=== PATIENT | female | born 2005 | race Two or more races ===

== ENCOUNTER 2024-06-06 08:26 | Inpatient (IN) | payer BC, OTHER ==
[~2024-06-06] VITALS: Ht 152.4 cm; Wt 44.9 kg
[2024-06-06] MEDS: SODIUM CHLORIDE 0.9% 1,000 ML IV ONE ×2 (09:37→10:24)
[2024-06-06] MEDS: LORazepam 2MG/ML-1ML VIAL IV ONE ×2 (09:40→13:09)
[2024-06-06 09:44] VITALS: PULSE 99; RESP 16; O2SAT 99
[2024-06-06 10:35] LABS: Basophils # (auto) 0 10 ^3/uL (0-0.2); Basophils % (auto) 0.4 % (0.0-2.0); Eosinophils # (auto) 0 10 ^3/uL (0-0.8); Eosinophils % (auto) 0.3 % (0.0-7.0); Hematocrit 39.9 % (36.0-46.0); Hemoglobin 13.3 g/dL (12.2-16.2); Lymphocytes # (auto) 1.1 10 ^3/uL (0.4-5.4); Lymphocytes % (auto) 10.6 % (10.0-50.0); Mean Corpuscular Hemoglobin 30.6 pg (28.0-32.0); Mean Corpuscular Hgb Conc. 33.3 g/dL (32.0-36.0); Monocytes # (auto) 0.5 10 ^3/uL (0-1.3); Monocytes % (auto) 5.2 % (0.0-12.0); Neutrophils # (auto) 8.4 10 ^3/uL (1.6-8.6); Neutrophils % (auto) 83.5 % (37.0-80.0); Nucleated Red Blood Cells % 0.1 %; Red Blood Cells 4.34 10^6/uL (4.0-5.20); Red Cell Distribution Width 12.9 % (11.8-14.3)
[2024-06-06 10:46] LABS: Anion Gap 8 (5-15); Carbon Dioxide 22 mmol/L (20-30); Chloride 111 mmol/L (98-107); Potassium 3.7 mmol/L (3.5-5.1); Sodium 141 mmol/L (136-145)
[2024-06-06 10:47] LABS: Calcium 10.6 mg/dL (8.7-10.4)
[2024-06-06 10:51] LABS: Glucose 87 mg/dL (74-106)
[2024-06-06 10:52] LABS: BUN/Creatinine Ratio 9.3 (10.0-20.0); Blood Urea Nitrogen 11 mg/dL (9-23)
[2024-06-06 11:06] LABS: Urine Bacteria FEW /hpf (None Seen); Urine Blood Negative /uL (Negative); Urine Clarity Turbid (Clear); Urine Color Yellow (Yellow); Urine Mucus FEW (None Seen); Urine Protein, UAD TRACE (Negative); Urine Specific Gravity 1.024 (1.001-1.035); Urine Urobilinogen Normal (Negative); Urine WBC 3 /hpf (0 - 5)
[2024-06-06 11:08] LABS: Amphetamine Screen, Urine Neg (NEGATIVE); Barbiturate Scree,Urine Neg (NEGATIVE); Benzodiazephine Screen, Urine Neg (NEGATIVE); Cannabinoid Screen, Urine Pos (NEGATIVE); Cocaine Screen, Urine Neg (NEGATIVE); Opiate Scree,Urine Neg (NEGATIVE); Phencyclidine Screen, Urine Neg (NEGATIVE)
[2024-06-06] MEDS: diphenhdrAMINE HCL 50 MG/1 ML VL IV ONE (13:09)
[2024-06-06] MEDS ORDERED: MORPHINE SULFATE INJ 2 MG/ml SYRG IV PRN (13:15)
[2024-06-06] MEDS ORDERED: ONDANSETRON HCL 4 MG/2 ML VIAL IV PRN (13:15)
[2024-06-06] MEDS ORDERED: DOCUSATE SOD 100 MG CAP PO PRN (13:15)
[2024-06-06] MEDS: SODIUM CHLORIDE 0.9% 1,000 ML IV SCH (13:25)
[2024-06-06] MEDS ORDERED: ALBUTEROL SULF 2.5 MG/0.5ML(0.5%) NEB SOLN NEB PRN (13:30)
[2024-06-06] MEDS ORDERED: IPRATROPIUM BROM 0.5 MG/2.5ML INH SOL NEB PRN (13:30)
[2024-06-06] MEDS: AZITHROMYCIN 250 MG TAB PO ONE (13:36)
[2024-06-06] MEDS: IPRATROPIUM BROM 0.5 MG/2.5ML INH SOL NEB ONE (13:47)
[2024-06-06] MEDS: ALBUTEROL SULF 2.5 MG/0.5ML(0.5%) NEB SOLN NEB ONE (13:47)
[2024-06-06] MEDS: predniSONE 20 MG TAB PO SCH (14:05)
[2024-06-06] MEDS ORDERED: NITROGLYCERIN 0.4 MG SL TAB SL PRN (14:30)
[2024-06-06 14:35] VITALS: BP 113/65; PULSE 100; RESP 16; TEMP 98.9; O2SAT 99
[2024-06-06 16:00] VITALS: BP 109/71; PULSE 91; RESP 16; TEMP 98; O2SAT 100
[2024-06-07] MEDS ORDERED: AZITHROMYCIN 250 MG TAB PO SCH (10:00)
== END 2024-06-06 17:00 | disposition left against medical advice (07) | DRG 641 ==
LOC: ER 08:29 → OVERFLOW 14:31
PROVIDERS: ADMIT Nurse Practitioner Family; ATTEND Nurse Practitioner Family
DX: E86.0 Dehydration (principal); N17.9 Acute kidney failure, unspecified; F41.1 Generalized anxiety disorder; R00.0 Tachycardia, unspecified; F12.10 Cannabis abuse, uncomplicated
CPT/HCPCS: 36415; 71045; 80048; 80307; 81001; 85025; 94640; G0378

== ENCOUNTER 2024-12-01 13:41 | Emergency (ER) | payer BC ==
[~2024-12-01] VITALS: Ht 152.4 cm; Wt 47.7 kg
[2024-12-01 13:57] VITALS: BP 110/80; PULSE 80; RESP 17; O2SAT 99
[2024-12-01] MEDS ORDERED: ONDANSETRON ODT 4 MG TAB PO ONE (14:00)
[2024-12-01] MEDS ORDERED: LOPE2CAP16 PO (14:06)
[2024-12-01] MEDS ORDERED: ZOFR4T PO (14:06)
--- NOTE | 2024-12-01 14:06 | ED.PDOC ---
GI ASSESSMENT HPI Comments nausea, vomiting, diarrhea Comments pt and her family has been having nausea, vomiting, diarrhea since morning. no pain. LMP 11/14/24. pt also smokes marijuana Time Seen by MD: 13:52 Reviewed Notes: Nurses Notes, Medications, Allergies Allergies: Coded Allergies: NO KNOWN ALLERGIES (Unverified , 06/06/24) Home Meds Active Scripts Loperamide Hcl (Imodium) 2 Mg Cp, 2 MG PO BID PRN for 2 Days, #4 CAP Prov:BEL CHRISTIANSON MD 12/01/24 Ondansetron Odt 4MG Tab (ZOFRAN PO) 4 Mg Tb, 4 MG PO Q4HP PRN for 3 Days, #15 TAB ODT TAB-DISSOLVE IN MOUTH, THEN SWALLOW Prov:BEL CHRISTIANSON MD 12/01/24 Information Source: Patient Mode of Arrival: Ambulatory Timing: Hours, Days Duration: Intermittent Quality: None Vomitus: Food Particles Stool: Loose Severity: Mild Recent Hx of: Contact Exposure Pain Location: None Modifying Factors: Nothing Associated sign and symptoms: Nausea, Vomiting, Diarrhea Past Medical History PAST MEDICAL HISTORY: Anxiety Surgical History: Denies all surgeries TECHNICAL CONSULTANT History: No Pertinent TECHNICAL CONSULTANT History Family History Family History: Reviewed,noncontributory to illness Social History Smoker: Non-Smoker Alcohol: Denies ETOH Use Drugs: Marijuana Lives In: Home Constitutional: denies: chills, diaphoresis, fatigue, fever, malaise, sweats, weakness, others EENTM: denies: blurred vision, double vision, ear bleeding, ear discharge, ear drainage, ear pain, ear ringing, eye pain, eye redness, hearing loss, mouth pain, mouth swelling, nasal discharge, nose bleeding, nose congestion, nose pain, photophobia, tearing, throat pain, throat swelling, voice changes, others Respiratory: denies: cough, hemoptysis, orthopnea, SOB at rest, shortness of breath, SOB with excertion, stridor, wheezing, others Cardiovascular: denies: chest pain, dizzy spells, diaphoresis, Dyspnea on exertion, edema, irregular heart beat, left arm pain, lightheadedness, palpitations, PND, syncope, others Gastrointestinal: denies: abdomen distended, abdominal pain, blood streaked bowels, constipated, diarrhea, dysphagia, difficulty swallowing, hematemesis, melena, nausea, poor appetite, poor fluid intake, rectal bleeding, rectal pain, vomiting, others Genitourinary: denies: abnormal vagina bleeding, burning, dyspareunia, dysuria, flank pain, frequency, hematuria, incontinence, pain, , vagina discharge, urgency, others Neurological: denies: dizziness, fainting, headache, left sided numbness, left sided weakness, numbness, paresthesia, pre-existing deficit, right sided numbness, right sided weakness, seizure, speech problems, tingling, tremors, weakness, others Musculoskeletal: denies: back pain, gout, joint pain, joint swelling, muscle pain, muscle stiffness, neck pain, others Integumetry: denies: bruises, change in color, change in hair/nails, dryness, laceration, lesions, lumps, rash, wounds, others Allergic/Immunocompromised: denies: Difficulty Healing, Frequent Infections, Hives, Itching, others Hematologic/Lymphatic: denies: anemia, blood clots, easy bleeding, easy bruising, swollen glands, others Endocrine: denies: excessive hunger, excessive sweating, excessive thirst, excessive urination, flushing, intolerance to cold, intolerance to heat, unexplained weight gain, unexplained weight loss, others Psychiatric: denies: anxiety, bipolar disorder, depression, hopeless, panic disorder, schizophrenia, sleepless, suicidal, others All Other Systems: Reviewed and Negative Physical Exam General Appearance: No Apparent Distress, Normal HEENT: Normal ENT Inspection, Pharynx Normal, TMs Normal Neck: Full Range of Motion, Non-Tender, Normal, Normal Inspection Respiratory: Chest Non-Tender, Lungs Clear, No Accessory Muscle Use, No Respiratory Distress, Normal Breath Sounds Cardiovascular: No Edema, No JVD, No Murmur, No Gallop, Normal Peripheral Pulses, Regular Rate/Rhythm Breast Exam: Deferred Gastrointestinal: No Organomegaly, Non Tender, No Pulsatile Mass, Normal Bowel Sounds, Soft Genitalia: Deferred Pelvic: Deferred Rectal: Deferred Extremities: No calf tenderness, Normal capillary refill, Normal inspection, Normal range of motion, Non-tender, No pedal edema Musculoskeletal : Apperance: Normal Neurologic: Alert, scaffold builder II-XII nml as Tested, No Motor Deficits, Normal Affect, Normal Mood, No Sensory Deficits Cerebellar Function: Normal Reflexes: Normal Skin: Dry, Normal Color, Warm Lymphatic: No Adenopathy Was a procedure done? Was a procedure done?: No GI differential Dx Differential Diagnosis: Appendicitis, Complete , Incomplete , Inevitable , Missed , Threatened , Abruptio placentae, Bowel Obstruction, Dysmenorrhea, Ectopic , Gastritis/PUD, Gastroenteritis, Hernia, Hepatitis, Ovarian cyst/torsion, Pancreatitis, Dehydration, Diabetes/ DKA, Electrolyte Imbalance, Food Poisoning, , Bacterial, Parasitic, Viral, Hypovolemia X-Ray, Labs, Meds, VS Vital Signs Date Time Temp Pulse Resp B/P (MAP) Pulse Ox O2 Delivery O2 Flow Rate FiO2 12/01/24 13:57 98.2 80 17 110/80 (90) 99 Time of 1ST Reevaluation: 13:58 Reevaluation 1ST: Unchanged Patient Education/Counseling: Diagnosis, Treatment, Prognosis, Need For Follow Up Family Education/Counseling: No Family Present Additional Information this is a well appearing female, well hydrated, has no abdominal pain,, is not . her family has the same symptoms. although she does uses marijuana, this is likely a viral cause, especially with the family all having the same symptoms at the same time. i will start her on zofran and imodium. pt was called back to be reassessed. however, she is angry because she does not want to return to [facility] and has not given us urine for test Departure 1 Departure Time of Disposition: 15:32 Impression: Primary Impression: Nausea & vomiting Qualified Codes: R11.2 - Nausea with vomiting, unspecified Additional Impressions: Acute diarrhea Marijuana abuse Disposition: LEFT AWOL/ELOPED Condition: Other (unknown) e-Prescriptions Loperamide Hcl (Imodium) 2 Mg Cp 2 MG PO BID PRN for 2 Days, #4 CAP Prov: BEL CHRISTIANSON MD 12/01/24 Ondansetron Odt 4MG Tab (ZOFRAN PO) 4 Mg Tb 4 MG PO Q4HP PRN for 3 Days, #15 TAB ODT TAB-DISSOLVE IN MOUTH, THEN SWALLOW Prov: BEL CHRISTIANSON MD 12/01/24 Discharged With: Self Critical Care Note Critical Care Time?: No Stability Stability form required: No BEL CHRISTIANSON MD Dec 01, 2024 14:06
== END 2024-12-01 18:32 | disposition left against medical advice (07) ==
LOC: ER 13:41
DX: R11.2 Nausea with vomiting, unspecified (principal); R19.7 Diarrhea, unspecified; F12.10 Cannabis abuse, uncomplicated